=== PATIENT | female | born 1995 | race Caucasian/White ===

== ENCOUNTER 2022-11-12 11:25 | Emergency (ER) | payer MEDICAID ==
[~2022-11-12] VITALS: Ht 162.6 cm; Wt 65.8 kg
[2022-11-12 11:28] VITALS: BP_SYST 132
--- NOTE | 2022-11-12 11:30 | NUR ---
Pt brought by self, A&Ox4, pt presents to ER with cough/congestion, afebrile, skin pink and warm, cap refill <3, VSS, will cont to monitor.
--- NOTE | 2022-11-12 11:42 | NUR ---
Dr Mccann evaluating patient in the tent
[2022-11-12] MEDS ORDERED: ALBMDI INH (12:29)
--- NOTE | 2022-11-12 13:01 | NUR ---
Patient given written and verbal discharge instructions and verbalizes understanding. ER MD discussed with patient the results and treatment provided. Patient in stable condition. ID arm band removed. Rx of ALBUTEROL given. Patient educated on pain management and to follow up with PMD. Pain Scale 0/10. Opportunity for questions provided and answered. Medication side effect fact sheet provided.
== END 2022-11-12 13:01 | disposition home or self-care (01) ==
LOC: SED 11:25
DX: J20.9 Acute bronchitis, unspecified (principal); R05.9 Cough, unspecified; R50.9 Fever, unspecified; R09.89 Other specified symptoms and signs involving the circulatory and respiratory systems; Z79.899 Other long term (current) drug therapy
CPT/HCPCS: 71045; 99283

== ENCOUNTER 2023-02-10 13:57 | Emergency (ER) | payer MEDICAID ==
[~2023-02-10] VITALS: Ht 165.1 cm; Wt 54.4 kg
[~2023-02-10 13:57] MED LIST: ALBMDI INH
--- NOTE | 2023-02-10 14:25 | NUR ---
Patient to ER bed H1 to gown for evaluation. Side rails up.
--- NOTE | 2023-02-10 14:28 | NUR ---
Radiology bedside with pt for Chest xray.
[2023-02-10 14:29] VITALS: BP_SYST 118
--- NOTE | 2023-02-10 14:40 | NUR ---
Patient BIB self from home. Chief Complaint: uri sx x5d, with cough causing upper back pain x 4d rated at 3/10, and loss of appetite. Patient reports taking otc cold meds, zofran at 1000 today, dramamine last night. Patient reports tactile meaured fever [id number] ago. Patient usually takes Meclinzine but has been out x1mo. Patient has hx of vertigo, acid reflux, and ulcer. Patient denies surgical hx, only states procedures colonoscopy and endoscopy. Patient is a&ox4 and stable. HCG is negative, urine taken to lab.
--- NOTE | 2023-02-10 14:49 | NUR ---
ER at bedside examining patient.
[2023-02-10] MEDS ORDERED: PHEDM120 PO (15:47)
[2023-02-10] MEDS ORDERED: IBUP-1969 PO (15:47)
--- NOTE | 2023-02-10 15:59 | NUR ---
Patient given written and verbal discharge instructions and verbalizes understanding. ER MD [place] discussed with patient the results and treatment provided. Patient in stable condition. ID arm band removed. Rx of Promethazine and Ibuprofen sent to pharmacy on file. Patient educated on pain management and to follow up with PMD. Pain Scale 3/10. Opportunity for questions provided and answered. Medication side effect fact sheet provided. Patient discharged a&ox4 walking out on her own. Urine dipstick not performed, specimen sent to lab for UA.
[2023-02-10] MEDS ORDERED: MECL-261 PO (16:15)
== END 2023-02-10 15:59 | disposition home or self-care (01) ==
LOC: SED 13:57
DX: J40 Bronchitis, not specified as acute or chronic (principal); M54.50 Low back pain, unspecified; M54.6 Pain in thoracic spine; R05.9 Cough, unspecified; R09.81 Nasal congestion; Z79.899 Other long term (current) drug therapy
CPT/HCPCS: 71045; 81002; 81025; 99283